=== PATIENT | female | born 2000 | race Two or more races ===

== ENCOUNTER 2024-05-31 09:06 | Emergency (ER) | payer OTHER, SELFPAY ==
[2024-05-31 09:14] VITALS: BP 138/95; PULSE 82; TEMP 36.4; O2SAT 100; BMI 26.1
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
[2024-05-31] MEDS: LIDOCAINE VISCOUS 2% 15 ML SOLUTION TOPICAL (10:11)
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
[2024-05-31 11:06] VITALS: BP 135/79; PULSE 78; O2SAT 99
== END 2024-05-31 11:06 | disposition home or self-care (01) ==
PROVIDERS: Emergency Provider Emergency Medicine; PCP Family Medicine
DX: S40.021A Contusion of right upper arm, initial encounter (principal); S00.83XA Contusion of other part of head, initial encounter; S01.511A Laceration without foreign body of lip, initial encounter; V47.5XXA Car driver injured in collision with fixed or stationary object in traffic accident, initial encounter
CPT/HCPCS: 12011; 70486; 73080; 73090; 99285